=== PATIENT | female | born 1945 | race Caucasian/White ===

== ENCOUNTER → 2020-02-27 | Outpatient (CLI) | payer MEDICARE, MEDICAID ==
[~2020-02-27] MED LIST: CALC-25 PO; ERGO500013 PO; FERR-71 PO; MULT-1146 PO; NAPR500T7 PO; PANT40TA4 PO
== END | disposition home or self-care (01) ==
LOC: LAB 12:36
PROVIDERS: ATTEND Orthopaedic Surgery
DX: Z01.818 Encounter for other preprocedural examination (principal); Z11.59 Encounter for screening for other viral diseases
CPT/HCPCS: C9803; U0003

== ENCOUNTER 2020-03-02 06:10 | Inpatient (IN) | payer MEDICARE, MEDICAID ==
[~2020-03-02] VITALS: Ht 149.9 cm; Wt 62.6 kg
[~2020-03-02 06:10] MED LIST changes: -CALC-25 PO; -ERGO500013 PO; -FERR-71 PO; -NAPR500T7 PO; -PANT40TA4 PO
[2020-03-02] MEDS ORDERED: LACTATED RINGERS 1,000 ML IV SCH (06:40)
[2020-03-02 06:54] LABS: CLARITY URINE CLEAR (CLEAR); COLOR URINE YELLOW (YELLOW); KETONES URINE NEGATIVE (NEGATIVE); LEUKOCYTE ESTERASE URINE 3+ (NEGATIVE); NITRITE URINE NEGATIVE (NEGATIVE); OCCULT BLOOD URINE NEGATIVE (NEGATIVE); PH URINE 6.5 (4.5-8.0); PROTEIN URINE NEGATIVE (NEGATIVE); SPECIFIC GRAVITY URINE 1.016 (1.005-1.030)
[2020-03-02] MEDS ORDERED: MORPHINE SULFATE/PF 1MG/ML 10ML AMP ONE ×2 (07:07→07:37)
[2020-03-02] MEDS ORDERED: BUPIVACAINE/EPINEPH/PF 0.25%/0.0005 10ML ONE (07:08)
[2020-03-02] MEDS ORDERED: VANCOMYCIN HCL 1 GM/VIAL ONE (07:08)
[2020-03-02] MEDS ORDERED: BACITRACIN 50,000 UNITS/VIAL ONE (07:09)
[2020-03-02] MEDS ORDERED: PROPOFOL 200MG/20ML VIAL IV ONE (07:22)
[2020-03-02] MEDS ORDERED: FENTANYL CITRATE/PF 50MCG/ML 2ML VIAL ONE (07:22)
[2020-03-02] MEDS ORDERED: NEOSTIGMINE METHYLSULFATE 1MG/ML 10 ML VIAL ONE (07:22)
[2020-03-02] MEDS ORDERED: ROCURONIUM BROMIDE 10MG/ML VIAL 5ML IV ONE (07:22)
[2020-03-02] MEDS ORDERED: MIDAZOLAM HCL 2 MG/2 ML VIAL ONE (07:22)
[2020-03-02] MEDS ORDERED: GLYCOPYRROLATE 0.2 MG/ML 2ML VIAL ONE (07:23)
[2020-03-02] MEDS ORDERED: ONDANSETRON HCL 4MG/2ML INJ ONE (07:24)
[2020-03-02] MEDS ORDERED: DEXAMETHASONE 4MG/ML 1ML VIAL ONE (07:24)
[2020-03-02] MEDS ORDERED: TRANEXAMIC ACID 1,000 MG in SODIUM CHLORIDE 0.9% 100 ML IV SCH (07:30)
[2020-03-02] MEDS ORDERED: ACETAMINOPHEN 325MG TABLET PO PRN (07:45)
[2020-03-02] MEDS ORDERED: ONDANSETRON HCL 4MG/2ML INJ IV PRN ×2 (07:45→08:45)
[2020-03-02] MEDS ORDERED: HYDROCODONE/ACETAMINOPHEN 5/325MG TABLET PO PRN (07:45)
[2020-03-02] MEDS ORDERED: ZOLPIDEM TARTRATE 5MG TABLET PO PRN (07:45)
[2020-03-02] MEDS ORDERED: CALC-25 PO (08:04)
[2020-03-02] MEDS ORDERED: FERR-71 PO (08:04)
[2020-03-02] MEDS ORDERED: NAPR500T7 PO (08:04)
[2020-03-02] MEDS ORDERED: PANT40TA4 PO (08:04)
[2020-03-02] MEDS ORDERED: ERGO500013 PO (08:04)
[2020-03-02 08:22] LABS: CLARITY URINE CLEAR (CLEAR); COLOR URINE YELLOW (YELLOW); KETONES URINE NEGATIVE (NEGATIVE); LEUKOCYTE ESTERASE URINE NEGATIVE (NEGATIVE); NITRITE URINE NEGATIVE (NEGATIVE); OCCULT BLOOD URINE NEGATIVE (NEGATIVE); PH URINE 6.5 (4.5-8.0); PROTEIN URINE NEGATIVE (NEGATIVE); SPECIFIC GRAVITY URINE 1.012 (1.005-1.030); UROBILINOGEN URINE 0.2 E.U./dL (0.2-1.0)
[2020-03-02] MEDS ORDERED: LABETALOL 5MG/ML SYR 20 MG/4 ML SYRINGE IV PRN (08:45)
[2020-03-02] MEDS ORDERED: MEPERIDINE HCL/PF 25MG/ML CPJ IV PRN (08:45)
[2020-03-02] MEDS ORDERED: HYDROMORPHONE HCL/PF 2MG/ML CPJ IV PRN (08:45)
[2020-03-02] MEDS ORDERED: NALOXONE INJ IV PRN (12:00)
[2020-03-02] MEDS ORDERED: ONDANSETRON INJ IV PRN (12:00)
[2020-03-02] MEDS ORDERED: HYDROMORPHONE PCA 10MG/50ML IV PRN (12:00)
[2020-03-02 16:00] VITALS: BP 81/44
[2020-03-02] MEDS ORDERED: CELECOXIB 200MG CAPSULE PO SCH (17:00)
[2020-03-02] MEDS: CEFAZOLIN 2,000 MG in DEXT 5% WATER 100 ML IV SCH ×2 (17:28→23:40)
[2020-03-02 20:00] VITALS: BP 87/46
[2020-03-02] MEDS ORDERED: SODIUM CHLORIDE 0.9% 250 ML IV ONE (22:30)
[2020-03-02] MEDS: LACTATED RINGERS 1,000 ML IV SCH (23:40)
[2020-03-03] VITALS (12 sets, daily range): BP systolic 87–117; BP diastolic 45–62
[2020-03-03] MEDS ORDERED: SODIUM CHLORIDE 0.9% 250 ML IV ONE (06:30)
[2020-03-03 07:48] LABS: CHLORIDE 106 mEq/L (98-107)
[2020-03-03 08:00] LABS: BASOPHILS % 0.2 % (0.0-2.0); EOSINOPHILS % 0.2 % (0.0-5.0); HEMATOCRIT. 21.8 % (36.0-48.0); HEMOGLOBIN. 7.4 g/dL (12.0-16.0); MEAN CORPUSCULAR VOLUME 88.5 fL (81.0-99.0); MEAN PLATELET VOLUME 8.4 fl (7.4-10.4); MONOCYTES % 9.4 % (2.0-8.0); NEUTROPHILS % 70.2 % (40.0-76.0); PLATELET 179 x1000/uL (130-400); RED BLOOD CELL COUNT 2.46 mill/uL (4.2-5.4); RED CELL DISTRIBUTION WIDTH 13.8 % (11.6-14.6)
[2020-03-03] MEDS ORDERED: MAGNESIUM HYDROXIDE 400MG/5ML 30ML UDC PO PRN (09:00)
[2020-03-03] MEDS ORDERED: ENOXAPARIN 40MG/0.4ML SYR SUBCUT SCH (09:00)
[2020-03-03] MEDS: DOCUSATE SODIUM 100MG CAPSULE PO SCH ×2 (09:12→20:15)
[2020-03-03] MEDS: LACTATED RINGERS 1,000 ML IV SCH (11:50)
[2020-03-03 18:55] LABS: HEMATOCRIT 29.1 % (36.0-48.0)
[2020-03-03] MEDS ORDERED: LACTULOSE 20G/30ML UDC PO NR (20:00)
[2020-03-03] MEDS: HYDROCODONE/ACETAMINOPHEN 5/325MG TABLET PO PRN (21:28)
[2020-03-04] VITALS (7 sets, daily range): BP systolic 85–118; BP diastolic 46–66
[2020-03-04 07:20] LABS: BASOPHILS % 0.4 % (0.0-2.0); EOSINOPHILS % 1.2 % (0.0-5.0); HEMATOCRIT. 29.5 % (36.0-48.0); HEMOGLOBIN. 10.2 g/dL (12.0-16.0); LYMPHOCYTES % 18.6 % (20.0-50.0); MEAN CORPUSCULAR HEMOGLOBIN 30.7 pg (28.0-32.0); MEAN CORPUSCULAR VOLUME 88.6 fL (81.0-99.0); MEAN PLATELET VOLUME 8.4 fl (7.4-10.4); NEUTROPHILS % 69.8 % (40.0-76.0); PLATELET 184 x1000/uL (130-400); RED BLOOD CELL COUNT 3.33 mill/uL (4.2-5.4); RED CELL DISTRIBUTION WIDTH 13.7 % (11.6-14.6)
[2020-03-04] MEDS: DOCUSATE SODIUM 100MG CAPSULE PO SCH ×2 (08:39→16:28)
[2020-03-04] MEDS: HYDROCODONE/ACETAMINOPHEN 5/325MG TABLET PO PRN (08:59)
[2020-03-05] VITALS: BP_SYST 112; BP_SYST 118; BP_DIAS 62; BP_DIAS 63
[2020-03-05 04:00] VITALS: BP 112/63
[2020-03-05 06:25] LABS: BASOPHILS % 0.6 % (0.0-2.0); EOSINOPHILS % 1.2 % (0.0-5.0); HEMATOCRIT. 30.1 % (36.0-48.0); HEMOGLOBIN. 10.3 g/dL (12.0-16.0); LYMPHOCYTES % 19.8 % (20.0-50.0); MEAN CORPUSCULAR HEMOGLOBIN 30.6 pg (28.0-32.0); MEAN CORPUSCULAR VOLUME 89.3 fL (81.0-99.0); MEAN PLATELET VOLUME 8.1 fl (7.4-10.4); MONOCYTES % 8.8 % (2.0-8.0); NEUTROPHILS % 69.6 % (40.0-76.0); PLATELET 209 x1000/uL (130-400); RED BLOOD CELL COUNT 3.37 mill/uL (4.2-5.4)
[2020-03-05 08:00] VITALS: BP 117/64
[2020-03-05] MEDS ORDERED: ENOXAPARIN 40MG/0.4ML SYR SUBCUT SCH (09:00)
[2020-03-05] MEDS: DOCUSATE SODIUM 100MG CAPSULE PO SCH (10:00)
[2020-03-05 11:22] VITALS: BP 117/64
[2020-03-05 12:00] VITALS: BP 108/59
== END 2020-03-05 13:55 | disposition home or self-care (01) | DRG 470 ==
LOC: OR 06:10 → 6EST 06:11
PROVIDERS: ADMIT Orthopaedic Surgery; ATTEND Orthopaedic Surgery
PROC: 0SR904Z Replacement of Right Hip Joint with Ceramic on Polyethylene Synthetic Substitute, Open Approach (ICD-10-PCS; principal; 2020-03-02)
PROC: 30233N1 Transfusion of Nonautologous Red Blood Cells into Peripheral Vein, Percutaneous Approach (ICD-10-PCS; 2020-03-03)
DX: M16.11 Unilateral primary osteoarthritis, right hip (principal); M87.9 Osteonecrosis, unspecified; D62 Acute posthemorrhagic anemia; M65.9 Synovitis and tenosynovitis, unspecified; G89.29 Other chronic pain; E66.3 Overweight; M81.0 Age-related osteoporosis without current pathological fracture; E78.5 Hyperlipidemia, unspecified; I95.9 Hypotension, unspecified; Z90.49 Acquired absence of other specified parts of digestive tract; Z68.27 Body mass index [BMI] 27.0-27.9, adult
CPT/HCPCS: 36415; 73502; 74018; 80048; 81003; 82270; 85014; 85018; 85025; 86850; 86900; 86920; 88305; 97116; 97162; 97164; 97166; 97530; C1776; J0171; J0690; J1100; J1170; J1650; J2250; J2274; J2405; J2704; J2710; J3010; J3370; J3490; J7050; J7060; J7120; P9016